=== PATIENT | female | born 2000 | race African-American/Black ===

== ENCOUNTER 2025-04-22 14:40 | Emergency (ER) | payer OTHER, SELFPAY ==
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
[2025-04-22 14:49] VITALS: BP 138/83; PULSE 78; RESP 16; TEMP 36.6; O2SAT 100
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
[2025-04-22] MEDS: TETANUS,DIPHTHERIA,AC PERTUSSIS ADULT (0.5 ML) BOOSTRIX IM (15:03)
== END 2025-04-22 16:29 | disposition home or self-care (01) ==
PROVIDERS: Emergency Provider Student in an Organized Health Care Education/Training Program
DX: R07.89 Other chest pain (principal); S91.312A Laceration without foreign body, left foot, initial encounter; Z23 Encounter for immunization; V48.5XXA Car driver injured in noncollision transport accident in traffic accident, initial encounter
CPT/HCPCS: 12001; 71100; 90471; 90715; 99283